=== PATIENT | female | born 1990 | race Two or more races ===

== ENCOUNTER 2021-08-13 11:15 | Observation (INO) | payer MEDICAID ==
[2015-11-25 11:20] VITALS: BP 109/63
[~2021-08-13 11:15] MED LIST: HYDR-3164 PO; PNV1TABL25 PO
[2021-08-13] MEDS ORDERED: IV RINGERS,LACTATED 1000ML 1,000 ML IV PRN (11:30)
[2021-08-13 12:22] LABS: BASO # 0.1 x10^3/uL (0.0-0.2); BASO % 1 % (0-3); CALCIUM 9.3 mg/dL (8.5-10.1); CREATININE 0.7 mg/dL (0.6-1.0); EOS % 1 % (0-3); GFR 97.6; HEMOGLOBIN 13.3 g/dL (12.0-15.5); LYMPH # 2.4 x10^3/uL (1.0-4.8); LYMPH % 34 % (24-48); MEAN CORPUSCULAR HEMOGLOBIN 30 pg (25-35); MEAN CORPUSCULAR HGB CONC 33 g/dL (31-37); MEAN CORPUSCULAR VOLUME 89 fL (79-100); MONO # 0.4 x10^3/uL (0.0-1.1); MONO % 6 % (0-9); NEUT # 4.1 x10^3/uL (1.8-7.7); NEUT % 59 % (31-73); PLATELET COUNT 195 x10^3/uL (140-400); POTASSIUM 4.3 mmol/L (3.5-5.1); RED CELL DISTRIBUTION WIDTH 14.3 % (11.5-14.5)
[2021-08-13 12:28] LABS: ALBUMIN 2.7 g/dL (3.4-5.0); ALBUMIN/GLOBULIN RATIO 0.6 (1.0-1.7); TOTAL BILIRUBIN 0.3 mg/dL (0.2-1.0); TOTAL PROTEIN 7.1 g/dL (6.4-8.2); URIC ACID 6.7 mg/dL (2.6-6.0)
[2021-08-13 12:30] LABS: BACTERIA,URINE FEW /HPF (0-FEW); RBC,URINE OCC /HPF (0-2); WBC,URINE OCC /HPF (0-4)
[2021-08-13 13:47] LABS: CREATININE,RANDOM URINE 32.7 mg/dL (Not Establ.)
[2021-08-13] MEDS ORDERED: BETAMET ACET&NA PHOS 30 MG/5 ML VIAL. IM ONE (14:15)
== END 2021-08-13 14:50 | disposition home or self-care (01) ==
LOC: 3 SO LND 11:15
PROVIDERS: ADMIT Obstetrics & Gynecology; ATTEND Obstetrics & Gynecology
DX: O13.3 Gestational [pregnancy-induced] hypertension without significant proteinuria, third trimester (principal); Z3A.35 35 weeks gestation of pregnancy
CPT/HCPCS: 36415; 59025; 80053; 81001; 82570; 83615; 84156; 84550; 85025; 96372; G0378; G0379; J0702

== ENCOUNTER 2021-08-14 14:04 | Observation (INO) | payer MEDICAID ==
[2015-11-25 11:20] VITALS: BP 109/63
[2021-08-14] MEDS ORDERED: BETAMET ACET&NA PHOS 30 MG/5 ML VIAL. IM ONE (14:15)
== END 2021-08-14 15:48 | disposition home or self-care (01) ==
LOC: 3 SO LND 14:04
PROVIDERS: ADMIT Obstetrics & Gynecology; ATTEND Obstetrics & Gynecology
DX: O26.893 Other specified pregnancy related conditions, third trimester (principal); N89.8 Other specified noninflammatory disorders of vagina; Z3A.35 35 weeks gestation of pregnancy
CPT/HCPCS: 59025; 96372; G0378; G0379; J0702

== ENCOUNTER 2021-08-16 17:11 | Observation (INO) | payer MEDICAID ==
[2015-11-25 11:20] VITALS: BP 109/63
[2021-08-16] MEDS ORDERED: IV RINGERS,LACTATED 1000ML 1,000 ML IV PRN (17:30)
[2021-08-16 18:11] LABS: CREATININE,RANDOM URINE 42.5 mg/dL (Not Establ.)
[2021-08-16 18:17] LABS: BACTERIA,URINE FEW /HPF (0-FEW); RBC,URINE OCC /HPF (0-2); WBC,URINE OCC /HPF (0-4)
[2021-08-16 18:18] LABS: BASO # 0.1 x10^3/uL (0.0-0.2); BASO % 1 % (0-3); EOS % 0 % (0-3); HEMATOCRIT 39.9 % (36.0-47.0); HEMOGLOBIN 13.4 g/dL (12.0-15.5); LYMPH # 2.7 x10^3/uL (1.0-4.8); LYMPH % 26 % (24-48); MEAN CORPUSCULAR HEMOGLOBIN 30 pg (25-35); MEAN CORPUSCULAR HGB CONC 34 g/dL (31-37); MEAN CORPUSCULAR VOLUME 89 fL (79-100); MONO % 9 % (0-9); NEUT # 6.7 x10^3/uL (1.8-7.7); NEUT % 64 % (31-73); PLATELET COUNT 213 x10^3/uL (140-400); RED BLOOD COUNT 4.49 x10^6/uL (3.50-5.40); RED CELL DISTRIBUTION WIDTH 14.1 % (11.5-14.5); WHITE BLOOD COUNT 10.4 x10^3/uL (4.0-11.0)
[2021-08-16 18:26] LABS: CALCIUM 9.5 mg/dL (8.5-10.1); CREATININE 0.6 mg/dL (0.6-1.0); GFR 116.6; POTASSIUM 4.1 mmol/L (3.5-5.1)
[2021-08-16 18:31] LABS: ALBUMIN 2.6 g/dL (3.4-5.0); ALBUMIN/GLOBULIN RATIO 0.6 (1.0-1.7); TOTAL BILIRUBIN 0.1 mg/dL (0.2-1.0); TOTAL PROTEIN 6.8 g/dL (6.4-8.2); URIC ACID 6.2 mg/dL (2.6-6.0)
== END 2021-08-16 19:23 | disposition home or self-care (01) ==
LOC: 3 SO LND 17:11
PROVIDERS: ADMIT Obstetrics & Gynecology; ATTEND Obstetrics & Gynecology
DX: O13.3 Gestational [pregnancy-induced] hypertension without significant proteinuria, third trimester (principal); Z3A.36 36 weeks gestation of pregnancy
CPT/HCPCS: 36415; 59025; 80053; 81001; 82570; 83615; 84156; 84550; 85025; G0378; G0379

== ENCOUNTER 2021-08-22 05:54 | Inpatient (IN) | payer SELFPAY ==
[~2021-08-22] VITALS: Ht 154.9 cm; Wt 83.0 kg
[2021-08-22] MEDS ORDERED: 0.9 % SODIUM CHLORIDE 10 ML DISP.SYRIN. IV PRN ×2 (06:00→14:15)
[2021-08-22] MEDS ORDERED: BUTORPHANOL 2 MG/ML VIAL. IVP PRN ×2 (06:00)
[2021-08-22] MEDS ORDERED: ACETAMINOPHEN 325 MG TABLET. PO PRN ×2 (06:00→14:15)
[2021-08-22] MEDS ORDERED: OXYTOCIN 30 UNIT/500 ML PREMIX 500 ML IV PRN ×3 (06:00→14:15)
[2021-08-22] MEDS ORDERED: TERBUTALINE 1 MG/ML VIAL. SQ PRN (06:00)
[2021-08-22] MEDS ORDERED: LIDOCAINE 1% PF 30 ML VIAL. INJ PRN (06:00)
[2021-08-22 06:40] VITALS: BP 146/90
[2021-08-22 06:51] LABS: BASO # 0.1 x10^3/uL (0.0-0.2); BASO % 1 % (0-3); EOS # 0.1 x10^3/uL (0.0-0.7); EOS % 1 % (0-3); HEMATOCRIT 40.8 % (36.0-47.0); LYMPH # 3.2 x10^3/uL (1.0-4.8); LYMPH % 37 % (24-48); MEAN CORPUSCULAR HEMOGLOBIN 31 pg (25-35); MEAN CORPUSCULAR HGB CONC 34 g/dL (31-37); MEAN CORPUSCULAR VOLUME 89 fL (79-100); MONO # 0.5 x10^3/uL (0.0-1.1); MONO % 6 % (0-9); NEUT # 4.9 x10^3/uL (1.8-7.7); NEUT % 56 % (31-73); PLATELET COUNT 222 x10^3/uL (140-400); RED BLOOD COUNT 4.56 x10^6/uL (3.50-5.40); RED CELL DISTRIBUTION WIDTH 14.4 % (11.5-14.5); WHITE BLOOD COUNT 8.6 x10^3/uL (4.0-11.0)
[2021-08-22] MEDS: IV RINGERS,LACTATED 1000ML 1,000 ML IV SCH ×2 (07:00→08:59)
--- NOTE | 2021-08-22 10:15 | PDOC1 ---
NAVAL DESIGNER H&P Date of Admission: Date of Admission: Aug 22, 2021 at 05:54 History of Present Illness: EDC: 09/12/21 LMP: 01/04/21 30y @ 37.0 by 24wk u/s presents for scheduled indxn. On 08/13/21 the pt was seen in the office and found to have mild range BPs. She was sent to L&D on 08/13/21 for eval. The pt was dxed with preeclampsia based on continued mild range BPs and a random Pr/Cr of 7.42. The pt had no RENAE, changes in vision or abd pain so she was d/brandon. Prior to d/c the pt was started on a course of BMTZ with the understanding that she may need early indxn for preeclampsia. When the pt returned for her next office visit she was noted to have severe range BPs. She was sent to L&D for eval. On L&D she had no severe range BPs but did have several milds. Repeat labs were nml. Her random Pr/Cr was now 12.3. The pt remained with RENAE, changes in vision, or abd pain. Since the pt did not rule in for severe features she was d/brandon and placed on the indxn schedule for today. PMH: Denies PSH: Denies Meds: PNV All: NKDA OBHx: TSVD x 2 SH: no tob, no EtOH FH: DM Medications: Meds: Current Medications Medications (Trade) Dose Ordered Sig/Smaantha Route PRN Reason Start Time Stop Time Status Last Admin Dose Admin Ringer's Solution 1,000 ml @ 125 mls/hr Q8H IV 08/22/21 06:00 08/22/21 08:59 Oxytocin 500 ml @ 0 mls/hr CONT PRN IV SEE I/O RECORD 08/22/21 06:00 08/22/21 07:20 Allergies: Coded Allergies: No Known Drug Allergies (Unverified , 11/23/15) Physical Exam: Vital Signs: Vital Signs Date Time Temp Pulse Resp B/P (MAP) Pulse Ox O2 Delivery O2 Flow Rate FiO2 08/22/21 06:40 98.8 84 18 146/90 (108) Room Air 98.8 PE: GENERAL: No apparent distress. Alert and oriented. HEENT: Head normocephalic, atraumatic. NECK: Supple LUNGS: Clear to auscultation. HEART: RRR, S1, S2 present, pulses intact ABDOMEN: Soft, positive bowel sounds. EXTREMITIES: No cyanosis or edema. NEUROLOGIC: Normal speech, normal tone PSYCHIATRIC: Normal affect, normal mood. SKIN: No ulceration. FHT: 150s +acels/no decels/mLTV [place]: 2-3 min SVE: 2/50/-3 Labs: Laboratory Tests Test 08/22/21 06:39 08/22/21 06:50 White Blood Count 8.6 x10^3/uL (4.0-11.0) Red Blood Count 4.56 x10^6/uL (3.50-5.40) Hemoglobin 14.0 g/dL (12.0-15.5) Hematocrit 40.8 % (36.0-47.0) Mean Corpuscular Volume 89 fL (79-100) Mean Corpuscular Hemoglobin 31 pg (25-35) Mean Corpuscular Hemoglobin Concent 34 g/dL (31-37) Red Cell Distribution Width 14.4 % (11.5-14.5) Platelet Count 222 x10^3/uL (140-400) Neutrophils (%) (Auto) 56 % (31-73) Lymphocytes (%) (Auto) 37 % (24-48) Monocytes (%) (Auto) 6 % (0-9) Eosinophils (%) (Auto) 1 % (0-3) Basophils (%) (Auto) 1 % (0-3) Neutrophils # (Auto) 4.9 x10^3/uL (1.8-7.7) Lymphocytes # (Auto) 3.2 x10^3/uL (1.0-4.8) Monocytes # (Auto) 0.5 x10^3/uL (0.0-1.1) Eosinophils # (Auto) 0.1 x10^3/uL (0.0-0.7) Basophils # (Auto) 0.1 x10^3/uL (0.0-0.2) Treponema pallidum Antibody Nonreactive (Nonreactive) SARS-CoV-2 Antigen (Rapid) Negative (NEGATIVE) Laboratory Tests 08/22/21 06:39 Laboratory Tests 08/22/21 06:39 Assessment & Plan: A/P 30y @ 37.0 by 24wk u/s 1.) Indxn on Pit 2.) Preeclampsia based on BPs and a proteinuria. No s/s of severe features. BP nml to mild. One severe, not requiring intervention 3.) Elevated GTT - 0 of 4 values of 3hr GTT elevated 4.) TDAP given 07/16/21 5.) Fetus cat I FHT, s/p BMTZ on 08/13 and 08/14 6.) GBS neg AFUA LARSON MD Aug 22, 2021 10:15
[2021-08-22] MEDS ORDERED: MMR per PROTOCOL. MC PRN (14:15)
[2021-08-22] MEDS ORDERED: HYDROCORTISONE 1% TOPICAL OINTMENT 30GM TUBE. TP PRN (14:15)
[2021-08-22] MEDS ORDERED: DOCUSATE SODIUM 100 MG CAPSULE. PO PRN (14:15)
[2021-08-22] MEDS ORDERED: ZOLPIDEM 5 MG TABLET. PO PRN (14:15)
[2021-08-22] MEDS ORDERED: MAGNESIUM HYDROXIDE 2,400 MG/30 ML ORAL.SUSP. PO PRN (14:15)
[2021-08-22] MEDS ORDERED: MAG HYDROX/ALUMINUM HYD/SIMETH 30 ML ORAL.SUSP PO PRN (14:15)
[2021-08-22] MEDS ORDERED: TDaP (BOOSTRIX) per PROTOCOL. MC PRN (14:15)
[2021-08-22] MEDS ORDERED: SIMETHICONE 80 MG TAB.CHEW PO PRN (14:15)
[2021-08-22] MEDS ORDERED: PHENYLEPH/MINERAL OIL/PETROLAT RECTAL OINTMENT TUBE. RC PRN (14:15)
[2021-08-22] MEDS ORDERED: oxyCODONE/APAP 5/325 1 TAB TABLET PO PRN (14:15)
[2021-08-22] MEDS ORDERED: diphenhydrAMINE HCL 25 MG CAPSULE PO PRN (14:15)
[2021-08-22] MEDS ORDERED: BENZOCAINE 20% TOPICAL AEROSOL SPRAY 57GM CAN. TP PRN (14:15)
[2021-08-22] MEDS: IBUPROFEN 400 MG TABLET. PO PRN (14:17)
--- NOTE | 2021-08-22 14:41 | PDOC4 ---
VAGINAL DELIVERY DATE DATE: 08/22/21 TIME: 14:40 TIME Patient delivered a viable male infant over intact perineum at 1335. Wt 4 lb 15 oz. Apgars 8/9. Placenta delivered spontaneously, intact with 3VC. No lacerations noted. Good hemostasis noted. 20 U of Pit given with IVF. EBL 200 cc. WEIGHT Weight [ ] AFUA LARSON MD Aug 22, 2021 14:41
[2021-08-22 20:10] VITALS: BP 151/90
[2021-08-23 04:15] VITALS: BP 135/88
[2021-08-23 07:21] LABS: HEMATOCRIT 39.2 % (36.0-47.0); HEMOGLOBIN 13.1 g/dL (12.0-15.5); RED BLOOD COUNT 4.31 x10^6/uL (3.50-5.40); RED CELL DISTRIBUTION WIDTH 14.7 % (11.5-14.5); WHITE BLOOD COUNT 10.2 x10^3/uL (4.0-11.0)
[2021-08-23] MEDS: FERROUS SULFATE 325 MG TABLET. PO SCH ×2 (08:00→17:00)
[2021-08-23 08:30] VITALS: BP 146/91
[2021-08-23] MEDS ORDERED: PRENATAL MULTIVITAMIN TABLET. PO SCH (09:00)
[2021-08-23] MEDS: IBUPROFEN 400 MG TABLET. PO PRN ×2 (09:58→19:56)
--- NOTE | 2021-08-23 10:11 | PDOC ---
CBX OPERATOR PROGRESS NOTE Date of Service: DATE: 08/23/21 TIME: 08:00 Subjective: 30 y/o is PPD #1 status post uncomplicated vaginal delivery. Current is complicated antepartum by mild preeclampsia. Pt. currently denies SOB, CP, RENAE, visual disturbances. She admits to normal minimal lochia. She denies abdominal pain or cramping at this time. Objective: Vital Signs: Vital Signs Date Time Temp Pulse Resp B/P (MAP) Pulse Ox O2 Delivery O2 Flow Rate FiO2 08/22/21 13:10 20 Room Air 08/22/21 20:10 98.7 83 151/90 (110) 96 98.7 Vital Signs Date Time Temp Pulse Resp B/P (MAP) Pulse Ox O2 Delivery O2 Flow Rate FiO2 08/23/21 04:15 98.0 73 18 135/88 (104) 98 Room Air 98.0 Labs: Laboratory Tests Test 08/23/21 06:45 White Blood Count 10.2 x10^3/uL (4.0-11.0) Red Blood Count 4.31 x10^6/uL (3.50-5.40) Hemoglobin 13.1 g/dL (12.0-15.5) Hematocrit 39.2 % (36.0-47.0) Mean Corpuscular Volume 91 fL (79-100) Mean Corpuscular Hemoglobin 30 pg (25-35) Mean Corpuscular Hemoglobin Concent 34 g/dL (31-37) Red Cell Distribution Width 14.7 % (11.5-14.5) H Platelet Count 210 x10^3/uL (140-400) Laboratory Tests 08/23/21 06:45 Laboratory Tests 08/23/21 06:45 Physical Exam: GENERAL: No apparent distress. Alert and oriented. HEENT: Head normocephalic, atraumatic. NECK: Supple LUNGS: Clear to auscultation. HEART: RRR, S1, S2 present, pulses intact ABDOMEN: Soft, positive bowel sounds. EXTREMITIES: No cyanosis or edema. NEUROLOGIC: Normal speech, normal tone, normal DTR's PSYCHIATRIC: Normal affect, normal mood. SKIN: No ulceration. Uterus: Fundus firm 1 cm below umbilicus Assessment & Plan: 30 y/o 1. PPD #1 s/p . 2. Mild preeclampsia: BP slight elevations. Continue BP monitoring every 4 ho urs. Continue I's and O's. No current anti-hypertensive medications at this time. Patient is asymptomatic. 3. Labs reviewed and stable. 4. Consider discharge home tomorrow if blood pressures are stable. 5. Discussed outpatient follow-up next week for short interval evaluation of blood pressures. JOSE LUIS BAEZ MD Aug 23, 2021 10:10
[2021-08-23 11:56] VITALS: BP 134/83
[2021-08-23 16:34] VITALS: BP 141/88
[2021-08-23 20:00] VITALS: BP 139/90
[2021-08-24 00:08] VITALS: BP 159/86
[2021-08-24 04:18] VITALS: BP 134/78
[2021-08-24 07:36] VITALS: BP 140/91
[2021-08-24] MEDS: IBUPROFEN 400 MG TABLET. PO PRN (07:36)
[2021-08-24] MEDS ORDERED: IBUP-1060 PO (07:54)
[2021-08-24] MEDS ORDERED: DOCU-109 PO (07:54)
--- NOTE | 2021-08-24 09:35 | PDOC ---
BEAD SUPERVISOR PROGRESS NOTE Date of Service: DATE: 08/24/21 TIME: : Subjective: 30 y/o female is PPD #2 status post vaginal delivery uncomplicated. The care is complicated by mild preeclampsia with slight elevations in blood pressure. Patient is asymptomatic. She denies SOB, CP, RENAE, and visual disturbances. Lochia minimal. Objective: Vital Signs: Vital Signs Date Time Temp Pulse Resp B/P (MAP) Pulse Ox O2 Delivery O2 Flow Rate FiO2 08/23/21 08:30 98.7 86 18 146/91 (109) 96 Room Air 98.7 Vital Signs Date Time Temp Pulse Resp B/P (MAP) Pulse Ox O2 Delivery O2 Flow Rate FiO2 08/24/21 07:36 97.7 71 18 140/91 (107) 97 Room Air 97.7 Physical Exam: GENERAL: No apparent distress. Alert and oriented. HEENT: Head normocephalic, atraumatic. NECK: Supple LUNGS: Clear to auscultation. HEART: RRR, S1, S2 present, pulses intact ABDOMEN: Soft, positive bowel sounds. EXTREMITIES: No cyanosis or edema. NEUROLOGIC: Normal speech, normal tone PSYCHIATRIC: Normal affect, normal mood. SKIN: No ulceration. Assessment & Plan: 30 y/o 1. PPD #2 s/p . 2. Mild preeclampsia: BP slight elevations. No current anti-hypertensive medications at this time. Patient is asymptomatic. 3. Labs reviewed and stable. 4. Discharge home today. 5. Discussed outpatient follow-up next week for short interval evaluation of blood pressures. JOSE LUIS BAEZ MD Aug 24, 2021 09:35
--- NOTE | 2021-08-24 09:38 | DISCH ---
DISCHARGE INSTRUCTIONS Condition on Discharge Condition on Discharge: Stable Activity After Discharge Activity Instructions for Disc: Activity as tolerated, Avoid exertion, Other, see below Lifting Instructions after Dis: No heavy lifting Exercise Instruction after Dis: Progress as tolerated Driving Instructions after Dis: No driving for 2 weeks Weight Bearing Status after Di: Partial weight bearing Sexual Activity Restrictions: Pelvic rest for 6 weeks Diet after Discharge Diet after Discharge: Regular Checks after Discharge Checks after discharge: Check your Temp as needed Contacting the DRPierre after DC Call your doctor for: Concerns you may have Follow-Up Follow up with: JOSE LUIS Chase MD Aug 24, 2021 09:38
--- NOTE | 2021-08-24 09:54 | PDOC3 ---
Discharge Summary Visit Information Date of Admission: Aug 22, 2021 Date of Discharge: Aug 24, 2021 Admitting Diagnosis: mild preeclampsia Admitting Diagnosis Comment: induction Final Diagnosis 1. 37 weeks, 2.mild preeclampsia Brief Hospital Course Allergies Allergies Coded Allergies Type Severity Reaction Last Updated Verified No Known Drug Allergies 11/23/15 No Vital Signs Vital Signs Date Time Temp Pulse Resp B/P (MAP) Pulse Ox O2 Delivery O2 Flow Rate FiO2 08/24/21 07:36 97.7 71 18 140/91 (107) 97 Room Air 97.7 Lab Results Laboratory Tests Test 08/23/21 06:45 White Blood Count 10.2 x10^3/uL (4.0-11.0) Red Blood Count 4.31 x10^6/uL (3.50-5.40) Hemoglobin 13.1 g/dL (12.0-15.5) Hematocrit 39.2 % (36.0-47.0) Mean Corpuscular Volume 91 fL (79-100) Mean Corpuscular Hemoglobin 30 pg (25-35) Mean Corpuscular Hemoglobin Concent 34 g/dL (31-37) Red Cell Distribution Width 14.7 % (11.5-14.5) Platelet Count 210 x10^3/uL (140-400) Brief Hospital Course Ms. Duran is a 30 old [sex] who presented with [ ] Assessment Assessment Patient stable with mild blood pressure elevations. Discharge Information Condition at Discharge: Stable Follow Up: Weeks Disposition/Orders: D/C to Home Scheduled Pnv Cmb#95/Ferrous Fumarate/Fa ( Tablet) 1 Each Tablet, 1 EACH PO DAILY, (Reported) Entered as Reported by: BLAIRE RAMOS on 11/24/152026 Scheduled PRN Docusate Sodium (Colace) 100 Mg Capsule, 100 MG PO PRN BID PRN for CONSTIPATION, #30 Ref 2 Prescribed by: AFUA LARSON MD on 08/24/21 075 Hydrocodone/Apap 5-325 ([place] 5-325 Tablet) 1 Each Tablet, 1 TAB PO PRN Q6HRS PRN for PAIN, #30 Prescribed by: MIGUEL COOLEY on 11/25/15 100 Ibuprofen (Ibuprofen) 800 Mg Tablet, 800 MG PO PRN Q8HRS PRN for INFLAMMATION, #30 Ref 2 Prescribed by: AFUA LARSON MD on 08/24/21 075 Patient Instructions Patient Instructions Pelvic rest 6 weeks. Justicifation of Admission Dx: Justifications for Admission: Justification of Admission Dx: Yes (induction for mild preeclampsia) JOSE LUIS BAEZ MD Aug 24, 2021 09:54
[2021-08-24 13:00] VITALS: BP 143/84
--- NOTE | 2021-08-24 13:00 | NUR ---
Pt d/c'd home with belongings and spouse at side. Pt d/c'd in w/c accompanied by RN and spouse. Baby in car seat. dicharge teaching discussed and hand outs given. Pt to f/u at [facility] 08/30 at 2 pm.
--- NOTE | 2021-08-27 15:11 | PATHOLOGY ---
[facility] Accession Number: [id number] . 01 Material submitted: . placenta - PLACENTA WITH CORD . 01 Clinical history: . . 02 Diagnosis: 398 gram early term placenta with attached membranes and umbilical cord and separate segment of umbilical cord: - Placental weight at approximate 25th percentile for estimated gestational age. - Circum-marginate placenta. - Eccentric insertion of umbilical cord. - Foci of intervillous fibrin deposition with avascular villi. . (JPM:mml; 08/27/2021) [facility] 08/27/2021 1009 Local . 02 Comment: There is no evidence of an acute chorioamnionitis. . (JPM:mml; 08/27/2021) . 02 Electronically signed: . Tl Goyal MD, Pathologist NPI- [id number] . 01 Gross description: . Fixative: Formalin Labeled: Placenta. Per requisition: Placenta with cord Specimen received: [place] placenta with attached membranes and detached and attached portions of umbilical cord Dimensions: 18.5 x 14.0 x 2.8 cm membranes appearance: Complete, westfall-pink, glistening, translucent membrane insertion: Circummarginate Umbilical cord: 37.0 cm in length, 1.0 cm in diameter Umbilical cord insertion: Eccentric, 4.0 cm from the closest placental disc edge Number of umbilical vessels: 3 Umbilical cord appearance: Westfall-white, displaying 2 coils per 10 cm segment Trimmed placental weight: 398 g surface: Blue-gan, displaying a normal arborizing vasculature pattern and a minimal amount of subchorionic fibrin deposition Maternal surface: Complete, red-brown, congested Parenchyma: Red, congested, devoid of discrete masses or lesions . General Dentist sections are submitted as follows: A1 proximal and distal umbilical cord A2 membranes, rolled A3 food service sales representatives peripheral placenta A4 food service sales representatives central placenta (JGG; 08/23/2021) [facility] 08/23/[address] [place] [address] . 02 Pathologist provided ICD-10: O82, Z37.0, Z3A.37 . 02 CPT . 199180 Specimen Comment: A courtesy copy of this report has been sent to [phone] Specimen Comment: Report sent to Performed at: [address] [id number] MD Eulalio Morrow MD Phone: [phone] Performed at: [facility] [address] [place] [id number] MD Tl Goyal MD Phone: [phone]
--- NOTE | 2021-08-28 09:10 | DS ---
DATE OF DISCHARGE: 08/24/2021 ADMISSION DIAGNOSES: 1. Intrauterine at 37 weeks and 0 days by 24-week ultrasound. 2. Induction of labor. 3. Preeclampsia. 4. Elevated GTT with normal 3-hour GTT. 5. Status post Tdap. 6. Status post betamethasone on 08/13/2021 and 08/14/2021. 7. GBS negative. DISCHARGE DIAGNOSES: 1. Intrauterine at 37 weeks and 0 days by 24-week ultrasound. 2. Induction of labor. 3. Preeclampsia. 4. Elevated GTT with normal 3-hour GTT. 5. Status post Tdap. 6. Status post betamethasone on 08/13/2021 and 08/14/2021. 7. GBS negative. PROCEDURE: Spontaneous vaginal delivery. BRIEF HOSPITAL COURSE: The patient is a 30-year-old 3, para 2-0-0-2, who presented to Labor and Delivery at 37 weeks and 0 days by 24-week ultrasound for scheduled induction. The patient was started on Pitocin that morning and later that afternoon delivered by vaginal delivery. See delivery note for full detail. By day #2, the patient was meeting all discharge criteria and subsequently discharged home. The patient's blood pressures remained normal to mild after delivery and never required any IV treatment. Of note, the patient's hemoglobin was 14.0 on admission and after delivery was found to be 13.1. DISCHARGE INSTRUCTIONS: The patient was told not to lift anything greater than 20 pounds, have pelvic rest for 6 weeks. CALL IF: The patient was to call if she had fevers, chills, nausea, vomiting, abdominal pain or any additional questions or concerns. FOLLOWUP APPOINTMENT: The patient was to follow up on 08/30/2021 at 2:00 p.m. for blood pressure check. DISCHARGE MEDICATIONS: The patient was given a prescription for Motrin 800 mg, #30 pills and Colace 100 mg, #[address]: Yissel TID: [id number] [facility]
== END 2021-08-24 15:37 | disposition home or self-care (01) | DRG 807 ==
LOC: 3 SO LND 05:54 → OBSVTOIN 13:35 → 3 SO LND 08-23 09:00
PROVIDERS: ADMIT Obstetrics & Gynecology; ATTEND Obstetrics & Gynecology
PROC: 10E0XZZ Delivery of Products of Conception, External Approach (ICD-10-PCS; principal; 2021-08-22)
DX: O14.04 Mild to moderate pre-eclampsia, complicating childbirth (principal); Z37.0 Single live birth; Z3A.37 37 weeks gestation of pregnancy; Z83.3 Family history of diabetes mellitus; Z20.822 Contact with and (suspected) exposure to COVID-19
CPT/HCPCS: 36415; 85025; 85027; 86592; 86850; 86900; 86901; 87426; 88307; G0378; G0379; J0595; J2590; J7120; U0003